=== PATIENT | male | born 1950 | race Caucasian/White ===

== ENCOUNTER 2017-01-28 12:05 | Emergency (ER) | payer MEDICARE ==
--- NOTE | 2017-01-28 12:47 | ED ---
Psych HPI - General Chief Complaint: Psychiatric Symptoms Stated Complaint: Petitioned Time Seen by Provider: 01/28/17 12:31 Source: patient, police, RN notes reviewed Mode of arrival: ambulatory - History of Present Illness Initial Comments: This is a 66-year-old male with a benign past medical history other than some back problems and anxiety issues who is [facility] for voicing homicidal or suicidal thoughts. 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 He apparently has had thoughts of killing her and kill himself. He has no prior history of overt depression or this type of thought pattern. He has no specific plan at this time. He denies any other issues no fevers chills nausea vomiting sweats or other symptoms patient does not use street drugs she does admit to drinking about 12 beers per month no recent alcohol intake. MD Complaint: suicidal ideation, feels depressed, other - Related Data Home Medications Medication Instructions Recorded Confirmed Aspirin 81 mg PO DAILY 01/28/17 01/28/17 Atorvastatin [Lipitor] 40 mg PO HS 01/28/17 01/28/17 Cholecalciferol [Vitamin D3] 1,000 unit PO DAILY 01/28/17 01/28/17 Citalopram Hydrobromide [CeleXA] 10 mg PO HS 01/28/17 01/28/17 Garlic 1 tab PO DAILY 01/28/17 01/28/17 Multivitamins, Thera [Multivitamin 1 tab PO DAILY 01/28/17 01/28/17 (formulary)] [place]-3 Fatty Acids/Fish Oil [Fish 1 cap PO DAILY 01/28/17 01/28/17 Oil 1,000 mg Softgel] Tamsulosin HCl [Flomax] 0.4 mg PO HS 01/28/17 01/28/17 Allergies Allergy/AdvReac Type Severity Reaction Status Date / Time No Known Allergies Allergy Verified 01/28/17 14:11 Review of Systems ROS Statement: Those systems with pertinent positive or pertinent negative responses have been documented in the HPI. ROS Other: All systems not noted in ROS Statement are negative. Past Medical History Past Medical History: Hyperlipidemia, Prostate Disorder History of Any Multi-Drug Resistant Organisms: None Reported Past Surgical History: No Surgical Hx Reported Past Psychological History: Anxiety, Depression Smoking Status: Never smoker Past Alcohol Use History: Occasional Past Drug Use History: None Reported General Exam - General Exam Comments Initial Comments: This is a well-developed well-nourished awake alert oriented 3 male Limitations: no limitations General appearance: alert, in no apparent distress Head exam: Present: atraumatic, normocephalic, normal inspection Eye exam: Present: normal appearance, PERRL, EOMI. Absent: scleral icterus, conjunctival injection, periorbital swelling ENT exam: Present: normal exam, mucous membranes moist Neck exam: Present: normal inspection. Absent: tenderness, meningismus, lymphadenopathy Respiratory exam: Present: normal lung sounds bilaterally. Absent: respiratory distress, wheezes, rales, rhonchi, stridor Cardiovascular Exam: Present: regular rate, normal rhythm, normal heart sounds. Absent: systolic murmur, diastolic murmur, rubs, gallop, clicks GI/Abdominal exam: Present: soft, normal bowel sounds. Absent: distended, tenderness, guarding, rebound, rigid Extremities exam: Present: normal inspection, full ROM, normal capillary refill. Absent: tenderness, pedal edema, joint swelling, calf tenderness Back exam: Present: normal inspection Neurological exam: Present: alert, oriented X3, CN II-XII intact Psychiatric exam: Present: depressed, flat affect, homicidal ideation, suicidal ideation Skin exam: Present: warm, dry, intact, normal color. Absent: rash Course Vital Signs 01/28/17 01/28/17 12:12 14:39 Temperature 97.2 F L 98.1 F Pulse Rate 104 H 90 Respiratory 18 20 Rate Blood Pressure 121/76 142/96 O2 Sat by Pulse 98 97 Oximetry Medical Decision Making - Medical Decision Making The patient was evaluated by psychiatric service and currently is not a risk to himself or anyone else the patient's daughter did come over to take any firearms in the house reevaluation patient reveals he would not do that now he does not want to do that now. - Lab Data Result diagrams: 01/28/17 13:00 01/28/17 13:00 Lab Results 01/28/17 01/28/17 01/28/17 Range/Units 13:00 13:00 14:00 WBC 6.7 (3.8-10.6) k/uL RBC 4.90 (4.30-5.90) m/uL Hgb 14.8 (13.0-17.5) gm/dL Hct 44.7 (39.0-53.0) % MCV 91.3 (80.0-100.0) fL MCH 30.2 (25.0-35.0) pg MCHC 33.1 (31.0-37.0) g/dL RDW 14.1 (11.5-15.5) % Plt Count 274 (150-450) k/uL Neutrophils % 63 % Lymphocytes % 25 % Monocytes % 9 % Eosinophils % 1 % Basophils % 1 % Neutrophils # 4.3 (1.3-7.7) k/uL Lymphocytes # 1.7 (1.0-4.8) k/uL Monocytes # 0.6 (0-1.0) k/uL Eosinophils # 0.1 (0-0.7) k/uL Basophils # 0.0 (0-0.2) k/uL Sodium 142 (137-145) mmol/L Potassium 4.4 (3.5-5.1) mmol/L Chloride 109 H (98-107) mmol/L Carbon Dioxide 20 L (22-30) mmol/L Anion Gap 13 mmol/L BUN 24 H (9-20) mg/dL Creatinine 1.71 H (0.66-1.25) mg/dL Est GFR (MDRD) Af Amer 49 (>60 ml/min/1.73 sqM) Est GFR (MDRD) Non-Af 40 (>60 ml/min/1.73 sqM) Glucose 113 H (74-99) mg/dL Calcium 10.3 H (8.4-10.2) mg/dL Urine Opiates Screen Not Detected (NotDetected) Ur Oxycodone Screen Not Detected (NotDetected) Urine Methadone Screen Not Detected (NotDetected) Ur Propoxyphene Screen Not Detected (NotDetected) Ur Barbiturates Screen Not Detected (NotDetected) U Tricyclic Antidepress Not Detected (NotDetected) Ur Phencyclidine Scrn Not Detected (NotDetected) Ur Amphetamines Screen Not Detected (NotDetected) U Methamphetamines Scrn Not Detected (NotDetected) U Benzodiazepines Scrn Not Detected (NotDetected) Urine Cocaine Screen Not Detected (NotDetected) U Marijuana (THC) Screen Not Detected (NotDetected) Disposition Clinical Impression: Adjustment reaction Disposition: HOME SELF-CARE Condition: Good Instructions: Stress (ED), Mood Disorders (ED) Additional Instructions: Follow-up as per the emergency psychiatric service. Referrals: Philippe Foote MD [Primary Care Provider] - 1-2 days
[2017-01-28 13:20] LABS: Basophils % (A) 1 %; CH 30.5; CHCM 33.6; Eosinophils # (A) 0.1 k/uL (0-0.7); Eosinophils % (A) 1 %; HCT 44.7 % (39.0-53.0); HDW 2.62; HGB 14.8 gm/dL (13.0-17.5); Luc # (Auto) 0.09; Luc % (Auto) 1; Lymphocytes # (A) 1.7 k/uL (1.0-4.8); Lymphocytes % (A) 25 %; MCH 30.2 pg (25.0-35.0); MCHC 33.1 g/dL (31.0-37.0); MCV 91.3 fL (80.0-100.0); Mean Platelet Volume 6.9; Monocytes # (A) 0.6 k/uL (0-1.0); Monocytes % (A) 9 %; Neutrophils # (A) 4.3 k/uL (1.3-7.7); Neutrophils % (A) 63 %; RDW 14.1 % (11.5-15.5); WBC 6.7 k/uL (3.8-10.6); WBC (Perox) 6.57
[2017-01-28 13:36] LABS: Calcium 10.3 mg/dL (8.4-10.2); Potassium 4.4 mmol/L (3.5-5.1)
[2017-01-28 14:40] VITALS: BP 142/96; PULSE 90; RESP 20; TEMP 98.1
== END 2017-01-28 14:54 | disposition home or self-care (01) ==
LOC: EC 12:05
DX: F43.21 Adjustment disorder with depressed mood (principal); R45.850 Homicidal ideations; R45.851 Suicidal ideations; E78.5 Hyperlipidemia, unspecified; N42.9 Disorder of prostate, unspecified; Z79.82 Long term (current) use of aspirin; Z79.899 Other long term (current) drug therapy
CPT/HCPCS: 36415; 80048; 80306; 82075; 85025; 99284

== ENCOUNTER → 2019-02-16 | Outpatient (CLI) | payer MEDICARE ==
--- NOTE | 2019-02-16 13:49 | US ---
EXAMINATION TYPE: US carotid duplex BILAT DATE OF EXAM: 02/16/2019 COMPARISON: NONE CLINICAL HISTORY: R42 DIZZINESS. Pt states dizziness EXAM MEASUREMENTS: RIGHT: Peak Systolic Velocity (PSV) cm/sec ----- Right CCA: 71.6 ----- Right ICA: 80.0 ----- Right ECA: 140.2 ICA/CCA ratio: 1.1 RIGHT: End Diastole cm/sec ----- Right CCA: 24.2 ----- Right ICA: 37.2 ----- Right ECA: 18.3 LEFT: Peak Systolic Velocity (PSV) cm/sec ----- Left CCA: 69.5 ----- Left ICA: 86.7 ----- Left ECA: 49.4 ICA/CCA ratio: 1.2 LEFT: End Diastole cm/sec ----- Left CCA: 20.6 ----- Left ICA: 36.5 ----- Left ECA: 11.9 VERTEBRALS (direction of flow): Right Vertebral: Antegrade Left Vertebral: Antegrade Rhythm: Normal No significant stenosis seen IMPRESSION: Mild degree of grayscale atheromatous plaquing with no sonographically evident hemodyn amically significant stenosis within either visualized carotid arterial system. Criteria for Assigning % of Stenosis / Diameter reduction (Estimation based on the indirect measurements of the internal carotid artery velocities (ICA PSV). 1. Normal (no stenosis)=ICA PSV < 125 cm/s: ratio < 2.0: ICA EDV<40 cm/s. 2. Less than 50% stenosis=ICA PSV < 125 cm/s: ratio < 2.0: ICA EDV<40 cm/s. 3. 50 to 69% stenosis=ICA PSV of 125 to 230 cm/s: ration 2.0 ? 4.0: ICA EDV 40-100 cm/s. 4. Greater than 70% stenosis to near occlusion= ICA PSV > 230 cm/s: ratio > 4.0: ICA EDV > 100 cm/s. 5. Near occlusion= ICA PSV velocities may be low or undetectable: variable ratio and ICA EDV. 6. Total occlusion=unable to detect flow.
== END | disposition home or self-care (01) ==
LOC: RADUSWWP 13:18
PROVIDERS: ATTEND Family Medicine
DX: I67.2 Cerebral atherosclerosis (principal)
CPT/HCPCS: 93880

== ENCOUNTER → 2020-04-13 | Outpatient (CLI) | payer MEDICARE ==
--- NOTE | 2020-04-13 18:38 | MR ---
EXAMINATION TYPE: MR brain wo/w con DATE OF EXAM: 04/13/2020 COMPARISON: None HISTORY: Left arm shakes. TECHNIQUE: Multiplanar, multisequence images of the brain and brainstem is performed without and with IV contras t, utilizing 12.5 mL intravenous Gadavist . FINDINGS: Diffusion weighted images demonstrate no evidence of a recent infarct or other diffusion ab normality. There is no extra-axial fluid collection. Pericallosal, periventricular and subcortical confluent and scattered hyperintensities present on inversion recovery and T2-weighted sequences. Lar gest focus in the extreme capsule on the left measures approximately 1 cm The ventricular system and cisternal spaces are normal in size and appearance. The brain volume is age appropriate, there is co rtical atrophy. Midline structures demonstrate normal morphology, there is a partially empty sella. The craniocervic al junction appears within normal limits. Post contrast images demonstrate no abnormal enhancement. The dural venous sinuses appear patent. The visualized sinuses are remarkable for inflammatory change within the ethmoid air cells, mucoperiosteal thickening in the maxillary sinus, minimal inflammatory change in the mastoids on the right, and the globes are intact. IMPRESSION: Age-related changes of atrophy and probable chronic small vessel ischemia
== END | disposition home or self-care (01) ==
LOC: RADMRIMAIN 07:53
PROVIDERS: ATTEND Family Medicine
DX: G31.1 Senile degeneration of brain, not elsewhere classified (principal); G25.5 Other chorea
CPT/HCPCS: 70553; A9585

== ENCOUNTER 2021-11-27 11:33 | Day surgery (SDC) | payer MEDICARE ==
[~2021-11-27 11:33] MED LIST: SODIUM CHLORIDE 0.9% 1,000 ML IV SCH
[2021-11-27] MEDS ORDERED: SODIUM CHLORIDE 0.9% 500 ML 500 ML IV ONE (12:50)
[2021-11-27 13:02] VITALS: BP 123/66; PULSE 87; RESP 16; TEMP 98.6
--- NOTE | 2021-11-27 17:10 | P.EPPROC ---
- EP Procedure Note Electrophysiology Procedure Note: Diagnosis Recurrent presyncope Twelve-lead EKG shows sinus rhythm while he prolonged AK interval 220 ms narrow QRS normal ST segments Tilt table test was performed Baseline blood pressure 138/66 mmHg, Baseline heart rate is 66 beats a minute Patient was tilted upright at the angle of 70 per protocol Immediate drop in blood pressure to 110/62 mmHg. Heart rate 69 beats a minute Thereafter the blood pressure continued to drop below lowest point of 78/53 mmHg. Heart rates in the 80s Thereafter the blood pressure remained between 95 210 mmHg in heart rates remained in the 80s When he is laid supine at the end of the procedure his blood pressure improved 111/67 mmHg The patient complained of weakness fatigue and mild dizziness Impression Mildly prolonged AK interval at baseline Dysautonomic response to upright tilting
== END 2021-11-27 15:21 | disposition home or self-care (01) ==
LOC: CATHEP 11:33
PROVIDERS: ATTEND Internal Medicine Clinical Cardiac Electrophysiology
DX: R55 Syncope and collapse (principal); I44.0 Atrioventricular block, first degree; Z88.0 Allergy status to penicillin; Z20.822 Contact with and (suspected) exposure to COVID-19; Z87.441 Personal history of nephrotic syndrome; Z86.69 Personal history of other diseases of the nervous system and sense organs
CPT/HCPCS: 87635; 93660

== ENCOUNTER → 2023-03-24 | Outpatient (CLI) | payer MEDICARE ==
--- NOTE | 2023-03-25 01:27 | EEG ---
ELECTROENCEPHALOGRAM REPORT PREAMBLE: This is a 72-year-old male, who has multiple syncopal episodes, at his doctor's office as well as at his home. He has passed out 6 times in the last year. He underwent cardiac workup, which came back negative. He has been on Sinemet and has been feeling better except having another event a couple of weeks ago outside his home. CURRENT MEDICATIONS: 1. Wellbutrin. 2. Venlafaxine. 3. Atorvastatin. 4. Sinemet. 5. Finasteride. 6. Florinef. 7. Tadalafil. EEG FINDINGS: This is a 21-channel digital EEG recorded with video component, utilizing 10/20 international system with referential and bipolar montages. Background consists of moderately well-developed and regulated, predominantly 8 hertz alpha, mixed with some theta activity seen in bihemispheric region. Background is posterior dominant and seems to be slightly reactive to eye opening or closing. Photic driving response was not seen. Frequent bilateral anterior temporal dysrhythmic theta activity was seen during this study. Some sharply controlled waves were also seen in this region, but appeared somewhat myogenic and does not appear clearly epileptiform in nature. Drowsiness was seen with appearance of bilaterally symmetric theta frequency rhythm. Deeper stages of sleep were not seen. No electrographic seizure was recorded. EKG channel showed no obvious arrhythmia. IMPRESSION: This is an abnormal EEG due to presence of frequent, intermittent, focal slowing in bilateral anterior temporal region, suggestive of focal cortical neuronal dysfunction. No definitive epileptiform activity was seen. Suggest prolonged, sleep-deprived EEG for further evaluation, if your suspicion for seizures is high. MMODL / IJN: [id number] / SUSIE
== END ==
LOC: NEUROMAIN 12:37
PROVIDERS: ATTEND Family Medicine
DX: G40.209 Localization-related (focal) (partial) symptomatic epilepsy and epileptic syndromes with complex partial seizures, not intractable, without status epilepticus (principal); Z88.0 Allergy status to penicillin; Z79.82 Long term (current) use of aspirin
CPT/HCPCS: 95816